=== PATIENT | female | born 1990 | race Caucasian/White ===

== ENCOUNTER 2019-08-14 12:07 | Emergency (ER) | payer MEDICAID ==
[~2019-08-14] VITALS: Ht 172.7 cm; Wt 86.0 kg
[2019-08-14] MEDS ORDERED: SODIUM CHLORIDE 0.9% 1000ML BAG (SEPSIS BOLUS) IV ONE (13:30)
[2019-08-14] MEDS ORDERED: LORAZEPAM 1MG TABLET PO ONE (13:30)
[2019-08-14] MEDS ORDERED: ONDANSETRON HCL 4MG/2ML INJ IV ONE (13:30)
[2019-08-14 13:42] LABS: BASOPHILS % 0.6 % (0.0-2.0); EOSINOPHILS % 0.2 % (0.0-5.0); HEMATOCRIT. 40.1 % (36.0-48.0); HEMOGLOBIN. 13.8 g/dL (12.0-16.0); LYMPHOCYTES % 17.8 % (20.0-50.0); MEAN CORPUSCULAR HEMOGLOBIN 30.8 pg (28.0-32.0); MEAN CORPUSCULAR VOLUME 89.4 fL (81.0-99.0); MEAN PLATELET VOLUME 7.8 fl (7.4-10.4); MONOCYTES % 13.9 % (2.0-8.0); NEUTROPHILS % 67.5 % (40.0-76.0); PLATELET 267 x1000/uL (130-400); RED BLOOD CELL COUNT 4.48 mill/uL (4.2-5.4); RED CELL DISTRIBUTION WIDTH 12.6 % (11.6-14.6)
[2019-08-14 13:53] LABS: CHLORIDE 107 mEq/L (98-107)
[2019-08-14 14:50] VITALS: BP 107/75
== END 2019-08-14 14:59 | disposition home or self-care (01) ==
LOC: ER 12:07
DX: J10.1 Influenza due to other identified influenza virus with other respiratory manifestations (principal); R05 Cough; F41.9 Anxiety disorder, unspecified; R20.2 Paresthesia of skin; G43.909 Migraine, unspecified, not intractable, without status migrainosus
CPT/HCPCS: 36415; 71045; 80053; 84145; 85025; 87804; 93005; 96361; 96374; 99284; J2405; J7030

== ENCOUNTER 2023-06-14 14:53 | Emergency (ER) | payer MEDICAID, OTHER ==
[~2023-06-14] VITALS: Ht 170.2 cm; Wt 60.0 kg
[2023-06-14 15:03] VITALS: BP 111/81; PULSE 79; RESP 16; TEMP 97.8; O2SAT 100
[2023-06-14 20:53] LABS: CLARITY URINE CLEAR (CLEAR); COLOR URINE YELLOW (YELLOW); GLUCOSE URINE NEGATIVE (NEGATIVE); KETONES URINE NEGATIVE (NEGATIVE); NITRITE URINE NEGATIVE (NEGATIVE); OCCULT BLOOD URINE NEGATIVE (NEGATIVE); PH URINE 7.5 (4.5-8.0); PROTEIN URINE NEGATIVE (NEGATIVE); SPECIFIC GRAVITY URINE 1.007 (1.005-1.030); UROBILINOGEN URINE 0.2 E.U./dL (0.2-1.0)
[2023-06-14 20:54] LABS: LEUKOCYTE ESTERASE URINE NEGATIVE (NEGATIVE)
[2023-06-14 21:02] LABS: RBC URINE 0-2 /hpf (0-2); SQUAMOUS EPITHELIAL CELL URINE 1+ /lpf (RARE/1+); WBC URINE NONE SEEN /hpf (0-2)
[2023-06-14 21:03] LABS: BACTERIA URINE NONE SEEN
[2023-06-17 04:07] LABS: CHLAMYDIA TRACHOMATIS NAA Negative (Negative); NEISSERIA GONORRHOEAE NAA Negative (Negative)
== END 2023-06-14 19:21 | disposition home or self-care (01) ==
LOC: ER 14:53
DX: L29.2 Pruritus vulvae (principal)
CPT/HCPCS: 87491; 87591; 81003; 81025; 87210; 99284; Z7610

== ENCOUNTER 2023-12-10 14:31 | Emergency (ER) | payer OTHER ==
[~2023-12-10] VITALS: Ht 165.1 cm; Wt 108.0 kg
[2023-12-10 14:53] VITALS: O2SAT 98
[2023-12-10 14:55] VITALS: PULSE 89
[2023-12-10] MEDS: KETOROLAC 15MG/ML VIAL IM ONE (15:58)
[2023-12-10] MEDS ORDERED: LIDO700A15 TP (19:08)
[2023-12-10] MEDS ORDERED: NAPR-1176 MT (19:08)
[2023-12-10 20:01] VITALS: BP 114/73; RESP 16; TEMP 96.3
== END 2023-12-10 20:04 | disposition home or self-care (01) ==
LOC: ER 14:50
DX: S30.0XXA Contusion of lower back and pelvis, initial encounter (principal); W18.39XA Other fall on same level, initial encounter; Y93.89 Activity, other specified; Y92.89 Other specified places as the place of occurrence of the external cause; Y99.8 Other external cause status
CPT/HCPCS: 81025; 72192; 96372; 99285; J1885; Z7610

== ENCOUNTER 2025-06-16 12:12 | Emergency (ER) | payer OTHER ==
[~2025-06-16] VITALS: Ht 165.1 cm; Wt 73.0 kg
[~2025-06-16 12:12] MED LIST: LIDO-53 TP; NAPR-1176 MT
[2025-06-16 12:15] VITALS: O2SAT 99
[2025-06-16 12:19] VITALS: BP 125/71; PULSE 69; RESP 16; TEMP 36.9; O2SAT 99
[2025-06-16] MEDS: SODIUM CHLORIDE 0.9% 1,000 ML IV ONE (16:15)
[2025-06-16] MEDS: DIPHENHYDRAMINE 50MG/ML VIAL IV ONE (17:09)
[2025-06-16] MEDS: SUMATRIPTAN SUCCINATE 6MG/0.5ML VIAL SUBCUT ONE (17:09)
[2025-06-16] MEDS: KETOROLAC 15MG/ML VIAL IV ONE (17:11)
[2025-06-16] MEDS: DEXAMETHASONE 10 MG/ML VIAL IV ONE (17:12)
[2025-06-16] MEDS: PROCHLORPERAZINE 10MG/2ML VIAL IV ONE (17:13)
[2025-06-16 17:51] LABS: INFLUENZA TYPE A Presumptive Negative (Pres. Neg.)
[2025-06-16 17:53] LABS: INFLUENZA TYPE B Presumptive Negative (Pres. Neg.)
== END 2025-06-16 18:40 | disposition home or self-care (01) ==
LOC: ER 12:12
DX: J06.9 Acute upper respiratory infection, unspecified (principal); G43.909 Migraine, unspecified, not intractable, without status migrainosus; B97.89 Other viral agents as the cause of diseases classified elsewhere; Z79.1 Long term (current) use of non-steroidal anti-inflammatories (NSAID); Z20.822 Contact with and (suspected) exposure to COVID-19
CPT/HCPCS: 87804 ×2; 96361; 96372; 96374; 96375; 99284; 87426; J1100; J1200; J1885; J0780; J3030; J7030; Z7610 ×4